=== PATIENT | female | born 1955 | race Hispanic/Latino ===

== ENCOUNTER → 2018-12-05 | Outpatient (CLI) | payer OTHER ==
--- NOTE | 2018-12-05 11:47 | Diagnostic Imaging Report ---
EXAM: SP LUMBAR, COMPLETE MIN 4VW DATE: 12/05/2018 10:16 AM INDICATION: Left leg pain, back pain COMPARISON: None FINDINGS: 5 views of the lumbar spine show 5 lumbar type vertebrae. Lumbar body heights and disc spaces are maintained. No spondylolisthesis. There is mild facet arthrosis at L4-5 and L5-S1. No pars defect. Soft tissues unremarkable. IMPRESSION: No acute bony abnormality. Mild degenerative change. Signed by: Dr. Faisal Dang M.D. on 12/05/2018 11:44 AM
== END ==
LOC: MAMMO 10:08
PROVIDERS: ATTEND Family Medicine
DX: Z12.31 Encounter for screening mammogram for malignant neoplasm of breast (principal); M54.42 Lumbago with sciatica, left side
CPT/HCPCS: 72110; 77067

== ENCOUNTER → 2020-12-26 | Outpatient (CLI) | payer BC | LOC: MAMMO 10:38 | PROVIDERS: ATTEND Internal Medicine | DX: Z12.31 Encounter for screening mammogram for malignant neoplasm of breast (principal) | CPT/HCPCS: 77067 ==